=== PATIENT | female | born 1995 | race Caucasian/White ===

== ENCOUNTER 2016-09-21 15:16 | Emergency (ER) | payer SELFPAY ==
[~2016-09-21] VITALS: Ht 167.6 cm; Wt 98.6 kg
[~2016-09-21 15:16] MED LIST: BIOT50005 PO; METF500T PO; NORE1TAB60 PO; OMEG300C PO; TAB-TAB PO
[2016-09-21 15:19] VITALS: BP 129/79; PULSE 108; RESP 16; TEMP 99.3; O2SAT 96
[2016-09-21] MEDS ORDERED: KRIL300C3 (15:29)
[2016-09-21] MEDS ORDERED: MULT1TAB84 PO (15:29)
--- NOTE | 2016-09-21 15:42 | PD ---
HPI Chief Complaint: Flank/Kidney Pain Time Seen by Provider: 15:40 Travel History International Travel<30 days: No Contact w/Intl Traveler<30days: No Traveled to known affect area: No History of Present Illness HPI This 21-year-old female is complaining of left flank pain and vomiting. She says the last week she was having symptoms of a urinary tract infection. She was having frequency and burning. She was not able to see a physician at that time because she was on a long car trip. She essentially developed a lot of pain in her flank area. She has been vomiting since last night. She has a history of polycystic ovarian syndrome. She was started on metformin last month. He has had borderline diabetes. [facility] Past Medical History Diminished Hearing: No Reproductive: Yes (PCOS) Tetanus Vaccination: Unknown Influenza Vaccination: No ?: Not LMP: on it now Social History Alcohol Use: Yes (RARELY) Tobacco Use: No Substance Use: No Allergies-Medications (Allergen,Severity, Reaction): Coded Allergies: Cranberry (Verified Allergy, Mild, 09/21/16) vomiting Reported Meds & Prescriptions Reported Meds & Active Scripts Active Metformin (Metformin HCl) 500 Mg Tab 500 Mg PO DAILY With a meal Reported Multivitamin Adults (Multiple Vitamins W/ Minerals) 1 Tab 1 Tab PO DAILY Krill Oil [place]-3 300 mg (Krill Oil) 1 Cap Cap Biotin 5,000 Mcg Cap 5,000 Mcg PO Review of Systems General / Constitutional: No: Fever, Chills Eyes: No: Diploplia, Blurred Vision HENT: No: Headaches, Vertigo Cardiovascular: No: Chest Pain or Discomfort, Palpitations Respiratory: No: Cough, Shortness of Breath Gastrointestinal: Positive: Nausea, Vomiting Genitourinary: Positive: Dysuria, Flank Pain Musculoskeletal: No: Myalgias, Arthralgias Skin: No Rash, No Itching Neurologic: No: Weakness, Dizziness Psychiatric: No: Anxiety, Depression Physical Exam Narrative GENERAL: Well-developed female SKIN: Focused skin assessment warm/dry. HEAD: Atraumatic. Normocephalic. EYES: Pupils equal and round. No scleral icterus. No injection or drainage. ENT: No nasal bleeding or discharge. Mucous membranes pink and moist. NECK: Trachea midline. No JVD. CARDIOVASCULAR: Regular rate and rhythm. No murmur appreciated. RESPIRATORY: No accessory muscle use. Clear to auscultation. Breath sounds equal bilaterally. GASTROINTESTINAL: Abdomen soft, non-tender, nondistended. Hepatic and splenic margins not palpable. There is left CVA tenderness MUSCULOSKELETAL: No obvious deformities. No clubbing. No cyanosis. No edema. NEUROLOGICAL: Awake and alert. No obvious cranial nerve deficits. Motor grossly within normal limits. Normal speech. PSYCHIATRIC: Appropriate mood and affect; insight and judgment normal. Data Data Last Documented VS Vital Signs Date Time Temp Pulse Resp B/P Pulse Ox O2 Delivery O2 Flow Rate FiO2 09/21/16 15:19 99.3 108 16 129/79 96 Orders Complete Blood Count With Diff (09/21/16 15:40) Basic Metabolic Panel (Bmp) (09/21/16 15:40) Urinalysis - C+S If Indicated (09/21/16 15:40) Sodium Chlor 0.9% 1000 Ml Inj (Ns 1000 M (09/21/16 15:45) Ondansetron Inj (Zofran Inj) (09/21/16 15:45) Ketorolac Inj (Toradol Inj) (09/21/16 15:45) Ed Urine Pregnancytest Poc (09/21/16 15:42) Sodium Chlor 0.9% 1000 Ml Inj (Ns 1000 M (09/21/16 16:15) Potassium Chloride (Kcl) (09/21/16 16:15) Ceftriaxone Inj (Rocephin Inj) (09/21/16 16:45) Urine Culture (09/21/16 16:26) Labs Laboratory Tests Test 09/21/16 09/21/16 15:50 16:26 White Blood Count 15.9 TH/MM3 Red Blood Count 4.92 MIL/MM3 Hemoglobin 13.8 GM/DL Hematocrit 42.1 % Mean Corpuscular Volume 85.5 FL Mean Corpuscular Hemoglobin 27.9 PG Mean Corpuscular Hemoglobin 32.7 % Concent Red Cell Distribution Width 13.7 % Platelet Count 407 TH/MM3 Mean Platelet Volume 8.7 FL Neutrophils (%) (Auto) 82.0 % Lymphocytes (%) (Auto) 10.6 % Monocytes (%) (Auto) 5.5 % Eosinophils (%) (Auto) 0.1 % Basophils (%) (Auto) 1.8 % Neutrophils # (Auto) 13.0 TH/MM3 Lymphocytes # (Auto) 1.7 TH/MM3 Monocytes # (Auto) 0.9 TH/MM3 Eosinophils # (Auto) 0.0 TH/MM3 Basophils # (Auto) 0.3 TH/MM3 CBC Comment AUTO DIFF Differential Comment AUTO DIFF CONFIRMED Sodium Level 138 MEQ/L Potassium Level 3.5 MEQ/L Chloride Level 105 MEQ/L Carbon Dioxide Level 23.6 MEQ/L Anion Gap 9 MEQ/L Blood Urea Nitrogen 10 MG/DL Creatinine 0.76 MG/DL Estimat Glomerular Filtration 95 ML/MIN Rate Random Glucose 99 MG/DL Calcium Level 9.2 MG/DL Urine Collection Type CLEAN CATCH Urine Color YELLOW Urine Turbidity MARKED Urine pH 6.0 Urine Specific [place] 1.024 Urine Protein 300 OR GREATER mg/dL Urine Glucose (UA) NEG mg/dL Urine Ketones 80 OR GREATER mg/dL Urine Occult Blood LARGE Urine Nitrite POS Urine Bilirubin NEG Urine Leukocyte Esterase MOD Urine RBC 100-200 /hpf Urine WBC INNUM /hpf Urine WBC Clumps MOD Urine Squamous Epithelial 6-8 /hpf Cells Urine Amorphous Sediment FEW Urine Bacteria MOD /hpf Microscopic Urinalysis Comment CULTURE INDICATED Urine Collection Time 1626 MDM Medical Decision Making Medical Screen Exam Complete: Yes Emergency Medical Condition: Yes Medical Record Reviewed: Yes Differential Diagnosis Differential includes UTI, pyelonephritis, renal colic Narrative Course Urine shows innumerable white cells. White count is 15,000. Patient has been started on IV fluids and has been given Rocephin. He had good response to Toradol and Zofran. She'll be released with prescription for Keflex and Zofran she is to take Motrin for pain. Force fluids. Return if increasing pain or intractable vomiting Diagnosis Primary Impression: Urinary tract infection Qualified Code: N10 - Acute pyelonephritis Scripts Ondansetron Odt (Zofran Odt)4 Mg Tab4 Mg SL Q8HR PRN (Nausea/Vomiting) #10 TAB Ref 0 Prov:Franky Casarez MD 09/21/16 Cephalexin (Keflex)500 Mg Duf488 Mg PO Q6H 10 Days Ref 0 Prov:Franky Casarez MD 09/21/16 Disposition: 01 DISCHARGE HOME Condition: Stable Franky Casarez MD September 21, 2016 15:42
[2016-09-21] MEDS ORDERED: ONDANSETRON HCL 4 MG/2 ML VIAL IV PUSH ONE (15:45)
[2016-09-21] MEDS ORDERED: KETOROLAC TROMETHAMINE 30 MG/ML (IVP) VIAL IV PUSH ONE (15:45)
[2016-09-21] MEDS ORDERED: SODIUM CHLOR 0.9% 1000 ML INJ 1,000 ML IV ONE ×2 (15:45→16:15)
[2016-09-21 16:03] LABS: BASOPHIL # 0.3 TH/MM3 (0-0.2); BASOPHIL % 1.8 % (0.0-2.0); EOSINOPHIL % 0.1 % (0.0-4.0); HEMATOCRIT 42.1 % (35.0-46.0); LYMPH % 10.6 % (9.0-44.0); LYMPHOCYTE # 1.7 TH/MM3 (1.0-4.8); MEAN CELL VOLUME 85.5 FL (80.0-100.0); MEAN CORPUSCULAR HEMOGLOBIN 27.9 PG (27.0-34.0); MEAN CORPUSCULAR HGB CONC 32.7 % (32.0-36.0); MONO % 5.5 % (0.0-8.0); PLATELET COUNT 407 TH/MM3 (150-450); RED BLOOD COUNT 4.92 MIL/MM3 (4.00-5.30); RED CELL DISTRIBUTION WIDTH 13.7 % (11.6-17.2); WHITE BLOOD COUNT 15.9 TH/MM3 (4.0-11.0)
[2016-09-21 16:04] LABS: POTASSIUM 3.5 MEQ/L (3.5-5.1)
[2016-09-21 16:06] LABS: HEMO FLAGS AUTO DIFF
[2016-09-21 16:07] LABS: BICARBONATE 23.6 MEQ/L (21.0-32.0)
[2016-09-21] MEDS ORDERED: POTASSIUM CHLORIDE 20 MEQ CONTROLLED RELEASE TAB PO ONE (16:15)
[2016-09-21 16:25] LABS: SCAN/DIFF AUTO DIFF CONFIRMED
[2016-09-21 16:33] LABS: BLOOD, URINE LARGE (NEG); GLUCOSE,URINE NEG (NEG)
[2016-09-21 16:36] LABS: KETONE, URINE 80 OR GREATER mg/dL (NEG); METHOD OF COLLECTION CLEAN CATCH; NITRITE,URINE POS (NEG); URINE COLOR YELLOW (YELLW/STRAW)
[2016-09-21 16:38] LABS: BACTERIA, URINE MOD /hpf; COMMENT (UR) CULTURE INDICATED; CULTURE IF INDICATED CULTURE INDICATED; RBC, URINE 100-200 /hpf (0-3); WBC, URINE INNUM /hpf (0-5)
[2016-09-21] MEDS ORDERED: cefTRIAXone INJ 1,000 MG in SODIUM CHLORIDE 0.9% INJ 100 ML IV ONE (16:45)
[2016-09-21] MEDS ORDERED: ZOFR4TAB3 SL (17:22)
[2016-09-21] MEDS ORDERED: CEPH-460 PO (17:22)
== END 2016-09-21 17:48 | disposition home or self-care (01) ==
LOC: PHED 15:16
DX: N10 Acute pyelonephritis (principal); B96.29 Other Escherichia coli [E. coli] as the cause of diseases classified elsewhere
CPT/HCPCS: 80048; 81001; 84703; 85025; 87077; 87086; 87186; 96361; 96365; 96375; 99284; J0696; J1885; J2405; J7030